=== PATIENT | female | born 1950 | race Caucasian/White ===

== ENCOUNTER → 2023-03-28 | Outpatient (CLI) | payer OTHER | END | disposition home or self-care (01) | LOC: OIH 07:47 | PROVIDERS: ATTEND Physician Assistant | DX: Z13.6 Encounter for screening for cardiovascular disorders (principal) | CPT/HCPCS: 75571 ==

== ENCOUNTER → 2024-07-24 | Outpatient (CLI) | payer MEDICARE | END | disposition home or self-care (01) | LOC: RAH 09:21 | PROVIDERS: ATTEND Internal Medicine | DX: Z12.31 Encounter for screening mammogram for malignant neoplasm of breast (principal) | CPT/HCPCS: 77067 ==

== ENCOUNTER → 2025-07-27 | Outpatient (CLI) | payer MEDICARE ==
--- NOTE | 2025-07-27 10:40 | HMCIMG ---
DIGITAL both breasts DIAGNOSTIC MAMMOGRAM WITH TOMOSYNTHESIS, DATED 07/27/2025 1:00 AM CDT Technique: The digital mammographic examination of lateral breasts in craniocaudal and mediolateral oblique views along with CAD was obtained. Tomosynthesis of both breasts was obtained. History: This is a 75 years year-old female 2, para 2 Ab 0 for 3D Diagnostic mammogram. Patient has history of right breast lumpectomy in 2009 and 2014. Patient has maternal grandmother with family history of breast cancer. Patient has no complaint Reference:Prior mammogram from 07/24/2024, 07/21/2022 06/22/2021. 12/30/2018, 01/14/2018 and 01/14/2018 are available. Breast composition: Breast composition D: The breasts are extremely dense, which lowers the sensitivity of mammography. Finding: The digital mammographic examination of both breasts in craniocaudal and mediolateral oblique view along with CAD demonstrates demonstrate to be dense with a large nodular density in right breast at the site of prior surgery.. Coned-down compression of the right breast demonstrate 2 large density well-circumscribed with halo sign. There is no evidence of any dendritic mass, cluster microcalcification or architectural distortion. The Tomosynthesis demonstrates no other Lesion seen. The retromammary fat appears to be normal. IMPRESSION: Due to nodular density seen in the right breast I would recommend bilateral breast sonogram for further evaluation. FINAL ASSESSMENT: ACR: BI-RAD -0. Incomplete: need additional imaging evaluation. Management: Recall for additional imaging and/or comparison with prior examination(s). Likelihood of Cancer: N/A NOTE: IF A WORK-UP OF THIS PATIENT LEADS TO A BIOPSY, PLEASE FORWARD A COPY OF THE PATHOLOGY REPORT TO OUR OFFICE REQUIRED BY SA EFFECTIVE JULY 22, 1994. A NEGATIVE MAMMOGRAM SHOULD NOT PRECLUDE BIOPSY OF A CLINICALLY PALPABLE SUSPICIOUS MASS, 10% OF BREAST CANCERS ARE MAMMOGRAPHICALLY OCCULT. THIS MAMMOGRAPHY FACILITY IS FULLY ACCREDITED BY THE FOOD AND DRUG ADMINISTRATION (FDA). THANK YOU FOR THIS REFERRAL.
== END | disposition home or self-care (01) ==
LOC: RAH 09:18
PROVIDERS: ATTEND Family Medicine
DX: R92.343 Mammographic extreme density, bilateral breasts (principal); Z80.3 Family history of malignant neoplasm of breast
CPT/HCPCS: 77062; 77066

== ENCOUNTER → 2025-08-14 | Outpatient (CLI) | payer MEDICARE ==
--- NOTE | 2025-08-15 01:01 | HMCIMG ---
EXAM: ULTRASOUND OF BOTH BREASTS Technique: High-resolution real-time ultrasound of both breasts and both axillae was performed with grayscale and color Doppler imaging as appropriate. Study quality is adequate. 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 Clinical Information: Abnormal mammogram; history of cancer. Findings: The right breast demonstrates a postsurgical scar at the ten o???clock position. At the ten o???clock position of the right breast there is an adjacent area of posterior acoustic shadowing without a discrete circumscribed mass identified on today???s study. The left breast demonstrates no sonographic mass, architectural distortion, or suspicious shadowing. The axillary lymph nodes are within normal limits bilaterally with preserved cortical thickness and fatty latasha. No skin thickening or abnormal ductal dilatation is demonstrated. No axillary fluid collection is seen. Impression: * Right breast ten o???clock position postsurgical scar with adjacent posterior acoustic shadowing. Correlation with the prior mammogram and surgical history is required to determine whether this represents expected postoperative change versus a suspicious shadowing focus. (BI-RADS 0: Incomplete???needs additional imaging evaluation and/or comparison with prior studies.) * Left breast without sonographic evidence of malignancy. (BI-RADS 1: Negative.) * Axillary lymph nodes within normal limits bilaterally. /Seth
== END | disposition home or self-care (01) ==
LOC: RAH 14:55
PROVIDERS: ATTEND Family Medicine
DX: R92.8 Other abnormal and inconclusive findings on diagnostic imaging of breast (principal)

== ENCOUNTER → 2025-10-06 | Outpatient (CLI) | payer MEDICARE ==
[~2025-10-06] MED LIST: GADOTERATE MEGLUMINE 10 MMOL/20 ML VIAL IV ONE
--- NOTE | 2025-10-08 16:51 | HMCIMG ---
INDICATION: Inconclusive screening ultrasound TECHNIQUE Precontrast axial T1 and axial T2 fat saturation sequences were obtained. Dynamic postcontrast axial imaging were obtained. Subtraction images and MIP reconstructions were generated. COMPARISON Bilateral breast ultrasound 08/14/2025 FINDINGS Amount of fibroglandular tissue: Heterogeneous fibroglandular tissue. Background parenchymal enhancement: Minimal. Right breast: Surgical changes in the upper outer right breast No suspicious mass or non-mass enhancement. Left breast: No suspicious mass or non-mass enhancement. Lymph nodes: Unremarkable. Other tissues: Unremarkable. IMPRESSION No MRI evidence of malignancy. BI-RADS 2: Benign findings. Recommendation: Continued imaging surveillance per high risk clinical protocol. /Brokaw
== END | disposition home or self-care (01) ==
LOC: RAH 10:15
PROVIDERS: ATTEND Family Medicine
DX: R92.323 Mammographic fibroglandular density, bilateral breasts (principal); R92.8 Other abnormal and inconclusive findings on diagnostic imaging of breast; Z85.3 Personal history of malignant neoplasm of breast
CPT/HCPCS: 77049; A9575